=== PATIENT | male | born 1985 | race African-American/Black ===

== ENCOUNTER 2025-04-16 09:01 | Emergency (ER) | payer OTHER ==
[~2025-04-16] VITALS: Ht 175.3 cm; Wt 84.1 kg
[2025-04-16] MEDS ORDERED: CLAR10CA3 PO (09:18)
[2025-04-16] MEDS ORDERED: VENTAER INH (09:18)
[2025-04-16] MEDS ORDERED: ADVA1AER9 INH (09:18)
[2025-04-16] MEDS ORDERED: HYDR12.55 PO (09:18)
[2025-04-16 11:44] VITALS: TEMP 97.8
[2025-04-16] MEDS ORDERED: PRED20TA PO (12:00)
[2025-04-16] MEDS: IPRATROPIUM 0.5MG/ALBUTEROL 2.5MG INH SOL UD 3ML NEB ONE (12:23)
[2025-04-16 12:49] VITALS: BP 172/102; O2SAT 98
== END 2025-04-16 12:51 | disposition home or self-care (01) ==
LOC: M ED 09:01
DX: J45.901 Unspecified asthma with (acute) exacerbation (principal); B34.8 Other viral infections of unspecified site; I10 Essential (primary) hypertension; F17.200 Nicotine dependence, unspecified, uncomplicated; Z79.52 Long term (current) use of systemic steroids; Z79.899 Other long term (current) drug therapy

== ENCOUNTER 2025-08-28 02:49 | Emergency (ER) | payer OTHER ==
[~2025-08-28] VITALS: Ht 175.3 cm; Wt 85.5 kg
[~2025-08-28 02:49] MED LIST: ADVA1AER9 INH; CLAR10CA3 PO; HYDR12.55 PO; PRED20TA PO; VENTAER INH
[2025-08-28] MEDS: IPRATROPIUM 0.5 MG/ALBUTEROL 2.5 MG INH SOL UD 3 ML NEB ONE (04:35)
[2025-08-28] MEDS ORDERED: PRED20TA PO (05:08)
[2025-08-28] MEDS ORDERED: IPRA0.00 NEB (05:35)
[2025-08-28 05:51] VITALS: BP 144/92; TEMP 97.4; O2SAT 100
== END 2025-08-28 05:53 | disposition home or self-care (01) ==
LOC: M ED 02:49
DX: J45.901 Unspecified asthma with (acute) exacerbation (principal); I10 Essential (primary) hypertension; Z91.010 Allergy to peanuts; Z91.048 Other nonmedicinal substance allergy status; Z79.52 Long term (current) use of systemic steroids; Z79.899 Other long term (current) drug therapy